=== PATIENT | male | born 1985 | race Two or more races ===

== ENCOUNTER 2020-06-19 13:39 | Emergency (ER) | payer SELFPAY ==
[2020-06-19 13:52] VITALS: BP 99/62; PULSE 79; RESP 16; TEMP 37.1; O2SAT 100; BMI 26.5
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
[2020-06-19 13:53] VITALS: BMI 26.5
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
--- NOTE | 2020-06-19 13:54 | XR_ITS ---
PROCEDURE: XR ANKLE LT 2V CLINICAL INDICATION: GATOR RAN OVER FOOT/LEG Posttraumatic pain COMPARISON: CR XR TIBIA FIBULA LT 2V from 06/19/2020 FINDINGS: There is an oblique fracture at the base of the medial malleolus. The fracture is very slightly distracted medially by approximately 2 mm with only minimal widening of the ankle mortise. No other significant anomalies are evident. The proximal and mid aspect of the tibia and fibula have an unremarkable appearance.. IMPRESSION: Oblique minimally distracted fracture at the base of the medial malleolus Dictated by: Gaurav Lam MD 06/19/2020 14:46 Gaurav Lam MD in [place] 06/19/2020 14:46
--- NOTE | 2020-06-19 13:54 | XR_ITS ---
PROCEDURE: XR KNEE LT 2V CLINICAL INDICATION: GATOR RAN OVER FOOT Posttraumatic pain COMPARISON: No exams were available for comparison FINDINGS: No fracture or dislocation. No lytic or blastic change. There is normal mineralization. The joint spaces are well-preserved. No significant degenerative/arthritic changes. No erosive changes evident. Other findings:None. IMPRESSION: No acute findings. Dictated by: Gaurav Lma MD 06/19/2020 14:48 Gaurav Lam MD in [place] 06/19/2020 14:48
--- NOTE | 2020-06-19 13:54 | XR_ITS ---
PROCEDURE: XR FOOT LT 2V CLINICAL INDICATION: GATOR RAN OVER FOOT/LEG Posttraumatic pain COMPARISON: No exams were available for comparison FINDINGS: No fracture or dislocation. No lytic or blastic change. There is normal mineralization. The joint spaces are well-preserved. No significant degenerative/arthritic changes. No erosive changes evident. Other findings:None. IMPRESSION: No acute findings. Dictated by: Gaurav Lam MD 06/19/2020 14:48 Gaurav Lam MD in [place] 06/19/2020 14:48
[2020-06-19 14:23] VITALS: BP 99/62; PULSE 60; RESP 20
--- NOTE | 2020-06-19 14:41 | PC.NURSE ---
Waiting return phone call from
--- NOTE | 2020-06-19 15:54 | PC.NURSE ---
ORTHO GLASS APPLIED TO L ANKLE.
[2020-06-19 16:06] VITALS: BP 100/68; PULSE 80; RESP 17; TEMP 37.1; O2SAT 99
== END 2020-06-19 16:09 | disposition home or self-care (01) ==
PROVIDERS: Emergency Provider Physician Assistant
DX: S82.52XA Displaced fracture of medial malleolus of left tibia, initial encounter for closed fracture (principal); V84.5XXA Driver of special agricultural vehicle injured in nontraffic accident, initial encounter; Y92.73 Farm field as the place of occurrence of the external cause
CPT/HCPCS: 29515; 73560; 73590; 73600; 73620; 99283

== ENCOUNTER → 2020-06-29 15:14 | Outpatient (CLI) | payer MEDICAID, SELFPAY ==
[2020-06-29 15:19] LABS: MANUAL DIFFERENTIAL MANUAL DIFFERENTIAL (MANUAL DIFF)
[2020-06-29 15:32] LABS: Basophils # 0.1 K/mm3 (0-0.2); Basophils % 0.7 % (0.1-2.0); Eosinophils # 0.2 K/mm3 (0.0-0.4); Eosinophils % 1.8 % (0.1-12.0); Hematocrit 45.8 % (42.0-52.0); Hemoglobin 15.9 g/dL (14.1-18.0); Lymphocytes # 2.3 K/mm3 (0.7-4.5); Lymphocytes % 26.6 % (10-50); Mean Corpuscular HGB Conc 34.8 g/dL (31.8-35.4); Mean Corpuscular Hemoglobin 32.5 pg (27.0-31.2); Mean Corpuscular Volume 93.5 fl (80-94); Mean Platelet Volume 7.9 fl (7.4-10.4); Monocytes # 0.5 K/mm3 (0.1-1.0); Monocytes % 6.3 % (1.7-9.3); Neutrophils # 5.5 K/mm3 (1.8-7.8); Neutrophils % 64.7 % (37.0-80.0); Platelet Count 375 K/mm3 (142-424); Red Blood Count 4.89 M/mm3 (4.60-6.20); Red Cell Distribution Width 12.4 % (11.5-17.5); White Blood Count 8.5 K/mm3 (4.8-10.8)
[2020-06-29 15:56] LABS: Eosinophils % 3 % (0-3); Lymphocytes % 24 % (10-50); Monocytes % 8 % (2-9); Neutrophils % 65 % (42-76); Platelet Estimate Normal; RBC Morphology Normal; Total Cells Counted 100
[2020-06-29 16:11] LABS: Alanine Aminotransferase 34 U/L (12-78); Albumin Level 4.8 g/dl (3.5-5.0); Albumin/Globulin Ratio 1.5 (1.1-1.8); Alkaline Phosphatase 77 U/L (38-126); Anion Gap 17.3 mEq/L (5-15); Aspartate Amino Transferase 33 U/L (17-59); Bilirubin,Total 0.5 mg/dl (0.2-1.3); Blood Urea Nitrogen 10 mg/dl (9-20); Carbon Dioxide 28 mmol/L (22.0-30.0); Chloride 99 mmol/L (98-107); Estimated Glomerular Filt Rate 128 ml/min (>60); GFR (African American) 154 ML/MIN (>60); Globulin 3.3 g/dL (1.3-3.2); Glucose 92 mg/dl (74-100); Potassium 4.3 mmoL/L (3.5-5.1); Sodium 140 mmol/L (136-145); Total Protein,Serum 8.1 g/dl (6.3-8.2)
[2020-06-29 17:19] LABS: Coronavirus 19 IgG Antibody Negative (Negative); Coronavirus 19 IgM Antibody Negative (Negative)
== END ==
PROVIDERS: Visit Provider Orthopaedic Surgery
DX: Z01.818 Encounter for other preprocedural examination (principal); Z01.84 Encounter for antibody response examination
CPT/HCPCS: 36415; 80053; 85007; 85014; 85018; 85048; 85049; 86328

== ENCOUNTER 2020-06-30 06:59 | Day surgery (SDC) | payer MEDICAID, SELFPAY ==
[2020-06-30] VITALS (13 sets, daily range): BP systolic 119–164; BP diastolic 77–110; PULSE 74–97; RESP 15–20; TEMP 36.4–38; O2SAT 97–100; BMI 23.9
--- NOTE | 2020-06-30 09:42 | XR_ITS ---
PROCEDURE: XR ANKLE LT 2V CLINICAL INDICATION: ORIF ANKLE PINNING FX COMPARISON: No exams were available for comparison FINDINGS: Fluoro time 1 minutes and 54 seconds. Multiple images are submitted during placement of a bone plate along the medial malleolar fracture as well as the diagonal screw stabilizing the fracture fragments with good alignment. There is some minimal fragmentation of the medial cortex of the tibia at the superior most screw IMPRESSION: Status post ORIF medial malleolar fracture with good alignment as described above Dictated by: Gaurav Lam MD 06/30/2020 19:04 Gaurav Lam MD in [place] 06/30/2020 19:04
--- NOTE | 2020-06-30 10:26 | P.PN_ITS ---
[facility] Anesthesia Checklist - Patient Identification Patient Identification: Arm Band, Verbal (Name & ) - Structural Data Admitted From: Home Planned Operative Procedure/s: orif left ankle Consent for Planned Operative Procedure(s) Verified: Yes Verified Documents: History and Physical - NPO Status Verified Time NPO: 00:00 - Chart Verification Results Verified: CBC, BMP - Additional verifications Patient : No Anesthesia Reactions: No Hx Blood Transfusions: No Blood Transfusion Reaction: No Cephalosporin Allergy: No Previous Colonoscopy: No - Cardiovascular Assessment Heart Sounds: S1 & S2 Pulse Strength: Baseline Pulse Rhythm: Regular Peripheral Edema: No - Airway Assessment C-Spine Mobility Assessed: Yes TMJ Mobility Assessed: Yes Dentition: Good Dentition - Neurological Assessment Level of Consciousness: Awake, Alert, Appropriate Hx Seizures: No Numbness or tingling in extremities: No - Anesthesia Plan Anesthesia Risk discussed: Yes Anesthesia Plan: Verified ASA Class: I Anesthesia Type: General w/block [facility] History I have reviewed the patient's past medical history: Yes Medical History: Denies:: Cancer, Diabetes Mellitus Type 1, Diabetes Mellitus Type 2, Internal Pacemaker, MRSA, Seizures *Have you ever received a pneumonia vaccine?: No *Have you received a flu vaccine this season?: No Other Medical History: Denies: Blood Transfusion Reaction Anesthesia experience/problems:: none Other Surgeries: Yes: Other. No: Pacemaker Amputation: No Fractures: Yes - *Social History Last grade of school completed: High school graduate Smoking Status: Never smoker Alcohol Intake: never Substance Use Type: other *Occupational Status:: employed Housing: house Household Members: none *Travel in the last 8 weeks: None Family Hx:: No significant family history
--- NOTE | 2020-06-30 10:27 | P.PN_ITS ---
[facility] Anesthesia Record Part I Intake, IV Amount: 1,450 Estimated blood loss (mL): 15 Urine output (mL): 0 Blood Products used (#): none Blood Pressure: 164/79 SaO2: 98 Pulse Rate: 94 Respiratory Rate: 20 Temperature: 97.5 F Patient is:: Awake, Stable Stable to PACU at:: 10:22
--- NOTE | 2020-06-30 10:45 | SUR.PHASEI ---
facetime translation service implemented immediately when patient into PACU
--- NOTE | 2020-06-30 11:15 | P.PN_ITS ---
[facility] Anesthesia Record Part II Discharge Time: 10:52 Destination: Surgical Day Care (OP Surgery) PACU nurse assessment reviewed?: Yes Patient Condition:: Good Anesthesia Complications:: None Swallowing reflex intact?: Yes Cyanosis?: No Blood Pressure: 146/81 Pulse Rate: 84 Temperature: 97.6 F Mental Status: Alert & Oriented Pain level:: 0 Nausea and/or vomitting:: None Intake, IV Amount: 25
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
== END 2020-06-30 12:00 | disposition home or self-care (01) ==
LOC: OR 07:00
PROVIDERS: Visit Provider Orthopaedic Surgery
PROC: (CPT 27766; principal; 2020-06-30 07:30)
DX: S82.52XA Displaced fracture of medial malleolus of left tibia, initial encounter for closed fracture (principal); V86.95XA Unspecified occupant of 3- or 4- wheeled all-terrain vehicle (ATV) injured in nontraffic accident, initial encounter; Y92.73 Farm field as the place of occurrence of the external cause
CPT/HCPCS: 27766; 73600; 96374; C1713; C1776

== ENCOUNTER → 2020-07-10 10:52 | Outpatient (CLI) | payer MEDICAID, SELFPAY ==
--- NOTE | 2020-07-10 10:56 | XR_ITS ---
PROCEDURE: XR ANKLE LT MIN 3V CLINICAL INDICATION: s/p Lt ankle; out of splint; NWB COMPARISON: CR XR ANKLE LT 2V from 06/19/2020 XA XR ANKLE LT 2V from 06/30/2020 FINDINGS: Status post ORIF medial malleolar fracture with medial bone plate an oblique screw through the medial malleolus with good alignment of the fracture fragments. A posterior splint is in place. Additional lucency is noted in the distal tibia from screw holes. IMPRESSION: Status post ORIF medial malleolar fracture with good alignment Dictated by: Gaurav Lam MD 07/10/2020 16:10 Gaurav Lam MD in [place] 07/10/2020 16:10
== END ==
PROVIDERS: Visit Provider Orthopaedic Surgery
DX: S82.53XA Displaced fracture of medial malleolus of unspecified tibia, initial encounter for closed fracture (principal)
CPT/HCPCS: 73610

== ENCOUNTER → 2020-08-17 12:49 | Outpatient (CLI) | payer MEDICAID, SELFPAY ==
--- NOTE | 2020-08-17 12:54 | XR_ITS ---
PROCEDURE: XR ANKLE LT MIN 3V CLINICAL INDICATION: Ankle FX FU; NWB Follow-up surgery COMPARISON: CR XR ANKLE LT 2V from 06/19/2020 DX XR ANKLE LT MIN 3V from 07/10/2020 FINDINGS: Status post ORIF distal tibial fracture with medial bone plate and multiple cortical screws. Fracture line is still visible with osteopenia at the fracture site. There remains good alignment of the fracture fragments. Ankle mortise does not appear widened. The superior cortical screw within the bone plate has caused a small cortical fracture along the lateral aspect of the distal tibia not significantly changed. IMPRESSION: Good alignment status post ORIF medial malleolar fracture with increasing osteopenia at the fracture site. Dictated by: Gaurav Lam MD 08/17/2020 14:14 Gaurav Lam MD in [place] 08/17/2020 14:14
== END ==
PROVIDERS: Visit Provider Orthopaedic Surgery
DX: S82.53XA Displaced fracture of medial malleolus of unspecified tibia, initial encounter for closed fracture (principal)
CPT/HCPCS: 73610

== ENCOUNTER 2020-08-17 13:53 | Outpatient (RCR) | payer MEDICAID, SELFPAY | END 2020-08-17 14:20 | disposition home or self-care (01) | LOC: PT 13:53 | PROVIDERS: Visit Provider Orthopaedic Surgery | DX: S82.52XA Displaced fracture of medial malleolus of left tibia, initial encounter for closed fracture (principal) | CPT/HCPCS: 97760 ==

== ENCOUNTER → 2020-09-07 11:45 | Outpatient (CLI) | payer MEDICAID, SELFPAY ==
--- NOTE | 2020-09-07 11:49 | XR_ITS ---
PROCEDURE: XR ANKLE LT MIN 3V CLINICAL INDICATION: s/p ORIF L ankle 06/30/20 Follow-up surgery COMPARISON: CR XR ANKLE LT 2V from 06/19/2020 DX XR ANKLE LT MIN 3V from 07/10/2020 CR XR ANKLE LT MIN 3V from 08/17/2020 FINDINGS: Status post ORIF distal tibia with a medial bone plate and multiple cortical screws as well as an oblique screw through the medial malleolar fracture. Fracture line is still visible. On the oblique view there is a zone of lucency along the superior aspect of the most superior screw. This however may represent overlap lucency from cortical defect from the surgery where screw was not placed. IMPRESSION: Good alignment status post ORIF medial malleolus. Fracture line is still visible. Developing zone of lucency around the most superior screw versus overlap from a prior cortical screw hole. Follow-up recommended Dictated by: Gaurav Lam MD 09/07/2020 15:28 Gaurav Lam MD in [place] 09/07/2020 15:28
== END ==
PROVIDERS: Visit Provider Orthopaedic Surgery
DX: S82.53XA Displaced fracture of medial malleolus of unspecified tibia, initial encounter for closed fracture (principal)
CPT/HCPCS: 73610

== ENCOUNTER 2020-09-07 13:29 | Outpatient (RCR) | payer MEDICAID, SELFPAY | END 2020-09-07 14:00 | disposition home or self-care (01) | LOC: PT 13:29 | PROVIDERS: Visit Provider Orthopaedic Surgery | DX: M25.572 Pain in left ankle and joints of left foot (principal) | CPT/HCPCS: 97760 ==

== ENCOUNTER → 2020-09-28 12:21 | Outpatient (CLI) | payer MEDICAID, SELFPAY ==
--- NOTE | 2020-09-28 12:24 | XR_ITS ---
PROCEDURE: XR ANKLE WT BEARING LT MIN 3V CLINICAL INDICATION: s/p ORIF L ankle; weightbearing COMPARISON: CR XR ANKLE LT 2V from 06/19/2020 DX XR ANKLE LT MIN 3V from 07/10/2020 CR XR ANKLE LT MIN 3V from 08/17/2020 CR XR ANKLE LT MIN 3V from 09/07/2020 FINDINGS: Good alignment status post ORIF medial malleolar fracture. The fracture line is still visible. IMPRESSION: Good alignment status post ORIF distal tibia not significantly changed Dictated by: Gaurav Lam MD 09/28/2020 16:13 Gaurav Lam MD in [place] 09/28/2020 16:13
== END ==
PROVIDERS: Visit Provider Orthopaedic Surgery
DX: S82.53XA Displaced fracture of medial malleolus of unspecified tibia, initial encounter for closed fracture (principal)
CPT/HCPCS: 73610

== ENCOUNTER → 2020-10-30 12:51 | Outpatient (CLI) | payer OTHER, SELFPAY ==
--- NOTE | 2020-10-30 13:01 | XR_ITS ---
PROCEDURE: XR ANKLE WT BEARING LT MIN 3V CLINICAL INDICATION: s/p ORIF L ankle (medial malleolus fracture) Follow-up surgery COMPARISON: DX XR ANKLE LT MIN 3V from 07/10/2020 CR XR ANKLE LT MIN 3V from 08/17/2020 CR XR ANKLE LT MIN 3V from 09/07/2020 CR XR ANKLE WT BEARING LT MIN 3V from 09/28/2020 FINDINGS: Status post ORIF medial malleolus with lateral bone plate and cortical screws in place with good alignment. Fracture line is still visible not significantly changed. IMPRESSION: Good alignment status post ORIF medial malleolar fracture Dictated by: Gaurav Lam MD 10/30/2020 14:10 Gaurav Lam MD in [place] 10/30/2020 14:10
== END ==
PROVIDERS: Visit Provider Orthopaedic Surgery
DX: S82.52XA Displaced fracture of medial malleolus of left tibia, initial encounter for closed fracture (principal)
CPT/HCPCS: 73610

== ENCOUNTER → 2020-12-28 13:01 | Outpatient (CLI) | payer OTHER, SELFPAY ==
--- NOTE | 2020-12-28 13:05 | XR_ITS ---
PROCEDURE: XR ANKLE LT MIN 3V CLINICAL INDICATION: s/p ORIF L ankle (medial malleolus fracture) Follow-up surgery COMPARISON: CR XR ANKLE LT MIN 3V from 08/17/2020 CR XR ANKLE LT MIN 3V from 09/07/2020 CR XR ANKLE WT BEARING LT MIN 3V from 09/28/2020 CR XR ANKLE WT BEARING LT MIN 3V from 10/30/2020 FINDINGS: Medial bone plate is present at the distal tibia stabilizing medial malleolar fracture with good alignment. Fracture line is still visible although somewhat less apparent. IMPRESSION: Good alignment status post ORIF distal tibial fracture Dictated by: Gaurav Lam MD 12/28/2020 14:13 Gaurav Lam MD in [place] 12/28/2020 14:13
== END ==
PROVIDERS: Visit Provider Orthopaedic Surgery
DX: S82.52XA Displaced fracture of medial malleolus of left tibia, initial encounter for closed fracture (principal)
CPT/HCPCS: 73610